=== PATIENT | female | born 1955 | race Caucasian/White ===

== ENCOUNTER → 2022-08-28 12:05 | Outpatient (CLI) | payer MEDICARE, SELFPAY ==
--- NOTE | ~2022-08-28 | MM_ITS ---
EXAMINATION: MM screening mickey BI w patricia HISTORY: Screening mammogram TECHNIQUE: Craniocaudal and mediolateral oblique 3-D tomosynthesis images were obtained and synthetic 2-D images were generated. CAD analysis was submitted and interpreted. COMPARISON: 07/29/2018, 07/10/2016 bilateral screening mammogram examinations BREAST PARENCHYMAL COMPOSITION: There are scattered areas of fibroglandular density. FINDINGS: Interval decreased size and resolution of previous reported mass in the slightly outer righ t breast. There are minimal benign calcifications. There is no evidence of suspicious mass, calcifica tion, or architectural distortion to suggest malignancy in either breast. There has been no suspiciou s interval change. IMPRESSION: 1. No mammographic evidence of malignancy. 2. Recommend routine screening mammography in one year. BI-RADS Category 2: Benign finding(s). Reviewed, dictated and finalized at location A. [employer]
== END ==
PROVIDERS: PCP Internal Medicine; Visit Provider Internal Medicine
DX: Z12.31 Encounter for screening mammogram for malignant neoplasm of breast (principal)
CPT/HCPCS: 77063; 77067